=== PATIENT | female | born 1985 | race Caucasian/White ===

== ENCOUNTER → 2017-08-18 | Outpatient (CLI) | payer OTHER ==
[~2017-08-18] MED LIST: PREN0.01 PO; Z.0.NO CURRENT MEDS
== END ==
LOC: HPND 10:38
PROVIDERS: ATTEND Obstetrics & Gynecology
DX: O98.513 Other viral diseases complicating pregnancy, third trimester (principal); O99.323 Drug use complicating pregnancy, third trimester; O10.013 Pre-existing essential hypertension complicating pregnancy, third trimester
CPT/HCPCS: 76811

== ENCOUNTER 2017-09-02 16:23 | Observation (INO) | payer OTHER ==
[~2017-09-02] VITALS: Ht 162.6 cm; Wt 75.0 kg
[2017-09-02] MEDS ORDERED: ACETAMINOPHEN 325 MG TAB PO PRN ×2 (17:00→18:15)
[2017-09-02] MEDS ORDERED: hydrALAZINE HCL 20 MG/ML VIAL IV PUSH PRN ×2 (17:00→17:15)
[2017-09-02 17:34] LABS: HEMATOCRIT 36.5 % (35.0-46.0); HEMOGLOBIN 12.8 GM/DL (11.6-15.3); MEAN CELL VOLUME 98.3 FL (80.0-100.0); MEAN CORPUSCULAR HEMOGLOBIN 34.4 PG (27.0-34.0); MEAN PLATELET VOLUME 9.1 FL (7.0-11.0); PLATELET COUNT 171 TH/MM3 (150-450); RED BLOOD COUNT 3.71 MIL/MM3 (4.00-5.30); RED CELL DISTRIBUTION WIDTH 12.8 % (11.6-17.2); WHITE BLOOD COUNT 9.6 TH/MM3 (4.0-11.0)
--- NOTE | 2017-09-02 17:39 | PD ---
HPI Chief Complaint Elevated blood pressure in the office Travel History International Travel<30 Days: No Contact w/Intl Traveler<30Days: No Known Affected Area: No History of Present Illness HPI 32-year-old 002, IUP at 34.0 CARE complicated by history of chronic hypertension but not treated The patient presents from the office with elevated blood pressures. She reports that her blood pressures have been elevated throughout the as well as prior to the . She reports that she was to start medication prior to but did not. She reports occasional visual changes and headache. She denies any right upper quadrant or epigastric pain. She denies any leaking fluid or vaginal bleeding. She denies any painful contractions. She reports occasional mild cramping. She reports normal movement. She has no other obstetrical complaints today. Weeks Gestation: 34 Para: 2 : 3 History Past Medical History Narrative Medical Chronic hypertension Obstetric History Obstetric History 002 2 Past Surgical History Surgical History: No Previous Surgery Family History Narrative Family History Chronic hypertension Social History Alcohol Use: No Tobacco Use: No Substance Abuse: No Allergies-Medications (Allergen,Severity, Reaction): Coded Allergies: No Known Allergies (Verified , 12/17/12) Home Meds Reported Medications Multivit/Min/Fol Ac/Iron/Pren ( Vit ( Plus)) Tab, 1 TAB PO DAILY, TAB 08/11/13 Miscellaneous (No Current Meds) Misc 12/17/12 Review of Systems Except as stated in HPI: all other systems reviewed are Neg Physical Exam Narrative GENERAL: Well-nourished, well-developed patient. SKIN: Warm and dry. HEAD: Normocephalic and atraumatic. EYES: No scleral icterus. No injection or drainage. ENT: No nasal drainage noted. Mucous membranes pink. Airway patent. NECK: Supple, trachea midline. No JVD. CARDIOVASCULAR: Regular rate and rhythm without murmurs, gallops, or rubs. RESPIRATORY: Breath sounds equal bilaterally. No accessory muscle use. BREASTS: Deferred ABDOMEN/GI: Abdomen soft, non-tender, bowel sounds present, no rebound, no guarding Gravid GENITOURINARY: Deferred FHT's: heart tones are in the 120s with moderate long-term variability, good accelerations, no decelerations noted. This a category 1 heart rate tracing and a reactive NST. EXTREMITIES: No cyanosis or edema. BACK: Nontender without obvious deformity. No CVA tenderness. NEUROLOGICAL/psychiatric/musculoskeletal: Awake and alert. Motor and sensory grossly within normal limits. Grossly normal muscle strength in all muscle groups. Normal speech. Grossly normal range of motion, gait, muscle strength. DTR 2+ with no clonus. Grossly normal memory and affect Data Data Orders Orders Cbc No Diff, Includes Plts (09/02/17 16:46) Comprehensive Metabolic Panel (09/02/17 16:46) Uric Acid (09/02/17 16:46) Urinalysis - C+S If Indicated (09/02/17 16:46) Protein Creat Ratio, Random Ur (09/02/17 16:46) ^ Insert Iv (09/02/17 16:49) Hydralazine Inj (Apresoline Inj) (09/02/17 17:00) Acetaminophen (Tylenol) (09/02/17 17:00) Hydralazine Inj (Apresoline Inj) (09/02/17 17:15) Labs Laboratory Tests Test 09/02/17 17:00 09/02/17 17:05 White Blood Count 9.6 Red Blood Count 3.71 Hemoglobin 12.8 Hematocrit 36.5 Mean Corpuscular Volume 98.3 Mean Corpuscular Hemoglobin 34.4 Mean Corpuscular Hemoglobin Concent 35.0 Red Cell Distribution Width 12.8 Platelet Count 171 Mean Platelet Volume 9.1 MDM Plan Assessment/plan: 1. IUP at 34.0 2. History of untreated chronic hypertension: The patient presents with elevated blood pressures today and received a dose of hydralazine in the OB ED. Preeclampsia workup was performed and showed no evidence of preeclampsia from a laboratory standpoint. Her PC ratio is 0.27. She has normal LFTs and uric acid. Will admit for 23 hour observation her blood pressures and obtain a 24- hour urine with creatinine clearance. Discussed with patient that her elevated blood pressures may be due to chronic hypertension but will monitor closely overnight. 3. well-being: Reassuring testing with reactive NST and category 1 heart rate tracing 4. Prematurity: Will administer betamethasone 2 doses for lung maturity 5. Hypokalemia: We will administer potassium 40meq x2 and recheck Tamiko Farley MD Sep 02, 2017 17:39
[2017-09-02 17:40] LABS: AMORPHOUS SEDIMENT, URINE RARE; BILIRUBIN, URINE NEG (NEG); BLOOD, URINE TRACE (NEG); GLUCOSE,URINE NEG (NEG); KETONE, URINE 150 mg/dL (NEG); MUCUS URINE FEW /lpf (OCC); NITRITE,URINE NEG (NEG); SQUAMOUS EPITHELIAL CELL URINE 6 /hpf (0-5); URINE COLOR YELLOW (YELLW/STRAW); URINE LEUKOCYTE ESTERASE MOD (NEG)
[2017-09-02 17:49] LABS: ALBUMIN 2.8 GM/DL (3.4-5.0); AST (GOT) 20 U/L (15-37); BICARBONATE 21.2 MEQ/L (21.0-32.0); BLOOD UREA NITROGEN 4 MG/DL (7-18); CALCIUM 8.2 MG/DL (8.5-10.1); CHLORIDE 104 MEQ/L (98-107); CREATININE 0.36 MG/DL (0.50-1.00); GLOMERULAR FILTRATION RATE 208 ML/MIN (>89); GLUCOSE,RANDOM 74 MG/DL (74-106); SODIUM (NA) 138 MEQ/L (136-145)
[2017-09-02 17:52] LABS: ALKALINE PHOSPHATASE 101 U/L (45-117); ALT (GPT) 34 U/L (10-53); TOTAL BILIRUBIN ADULT 0.5 MG/DL (0.2-1.0); TOTAL PROTEIN 6.9 GM/DL (6.4-8.2)
[2017-09-02] MEDS ORDERED: LACTATED RINGER'S 1000 ML INJ 1,000 ML IV SCH (18:02)
[2017-09-02] MEDS ORDERED: LACTATED RINGER'S 1000 ML INJ 1,000 ML IV ONE (18:15)
[2017-09-02] MEDS ORDERED: ONDANSETRON ODT 4 MG TAB PO PRN (18:15)
[2017-09-02] MEDS ORDERED: SODIUM CHLORIDE 0.9% FLUSH 10 ML FLUSH IV FLUSH PRN (18:15)
[2017-09-02] MEDS ORDERED: DOCUSATE SODIUM 100 MG CAP PO PRN (18:15)
[2017-09-02] MEDS ORDERED: ZOLPIDEM TARTRATE 5 MG TAB PO PRN (18:15)
--- NOTE | 2017-09-02 18:17 | PD ---
History of Present Illness History of Present Illness NST report Indications: 1 IUP at 34 weeks 2. Elevated blood pressure 3. History of chronic hypertension The heart tones are in the 120s with moderate long-term variability, good accelerations, no decelerations noted. This is a reactive NST and category 1 heart rate tracing Follow-up: Follow-up with continued monitoring Final diagnosis: IUP at 34 weeks, elevated blood pressure probably consistent consistent with chronic hypertension, reassuring wellbeing Tamiko Ohara MD Sep 02, 2017 18:16
[2017-09-02] MEDS: ENTER PATIENT'S HT/WT INTO MEDITECH OTHER SCH ×2 (18:30→19:30)
--- NOTE | 2017-09-02 18:43 | HHI.HP ---
History & Physical H&P Patient Name: Melanie Panda Unit Number: [id number] Date of : 1985 Patient Status: Admitted Inpatient (obs) Attending Doctor: Tamiko Ohara MD HPI HPI Chief Complaint Elevated blood pressure in the office Travel History International Travel<30 Days: No Contact w/Intl Traveler<30Days: No Known Affected Area: No History of Present Illness HPI 32-year-old 002, IUP at 34.0 CARE complicated by history of chronic hypertension but not treated The patient presents from the office with elevated blood pressures. She reports that her blood pressures have been elevated throughout the as well as prior to the . She reports that she was to start medication prior to but did not. She reports occasional visual changes and headache. She denies any right upper quadrant or epigastric pain. She denies any leaking fluid or vaginal bleeding. She denies any painful contractions. She reports occasional mild cramping. She reports normal movement. She has no other obstetrical complaints today. Weeks Gestation: 34 Para: 2 : 3 History (Limited) History Past Medical History Narrative Medical Chronic hypertension Obstetric History Obstetric History 002 2 Past Surgical History Surgical History: No Previous Surgery Family History Narrative Family History Chronic hypertension Social History Alcohol Use: No Tobacco Use: No Substance Abuse: No Allergies-Medications Allergies-Medications (Allergen,Severity, Reaction): Coded Allergies: No Known Allergies (Verified , 12/17/12) Home Meds Reported Medications Multivit/Min/Fol Ac/Iron/Pren ( Vit ( Plus)) Tab, 1 TAB PO DAILY, TAB 08/11/13 Miscellaneous (No Current Meds) Misc 12/17/12 ROS Review of Systems Except as stated in HPI: all other systems reviewed are Neg Physical Exam Physical Exam Narrative GENERAL: Well-nourished, well-developed patient. SKIN: Warm and dry. HEAD: Normocephalic and atraumatic. EYES: No scleral icterus. No injection or drainage. ENT: No nasal drainage noted. Mucous membranes pink. Airway patent. NECK: Supple, trachea midline. No JVD. CARDIOVASCULAR: Regular rate and rhythm without murmurs, gallops, or rubs. RESPIRATORY: Breath sounds equal bilaterally. No accessory muscle use. BREASTS: Deferred ABDOMEN/GI: Abdomen soft, non-tender, bowel sounds present, no rebound, no guarding Gravid GENITOURINARY: Deferred FHT's: heart tones are in the 120s with moderate long-term variability, good accelerations, no decelerations noted. This a category 1 heart rate tracing and a reactive NST. EXTREMITIES: No cyanosis or edema. BACK: Nontender without obvious deformity. No CVA tenderness. NEUROLOGICAL/psychiatric/musculoskeletal: Awake and alert. Motor and sensory grossly within normal limits. Grossly normal muscle strength in all muscle groups. Normal speech. Grossly normal range of motion, gait, muscle strength. DTR 2+ with no clonus. Grossly normal memory and affect Data Data Data Orders Orders Cbc No Diff, Includes Plts (09/02/17 16:46) Comprehensive Metabolic Panel (09/02/17 16:46) Uric Acid (09/02/17 16:46) Urinalysis - C+S If Indicated (09/02/17 16:46) Protein Creat Ratio, Random Ur (09/02/17 16:46) ^ Insert Iv (09/02/17 16:49) Hydralazine Inj (Apresoline Inj) (09/02/17 17:00) Acetaminophen (Tylenol) (09/02/17 17:00) Hydralazine Inj (Apresoline Inj) (09/02/17 17:15) Labs Laboratory Tests Test 09/02/17 17:00 09/02/17 17:05 White Blood Count 9.6 Red Blood Count 3.71 Hemoglobin 12.8 Hematocrit 36.5 Mean Corpuscular Volume 98.3 Mean Corpuscular Hemoglobin 34.4 Mean Corpuscular Hemoglobin Concent 35.0 Red Cell Distribution Width 12.8 Platelet Count 171 Mean Platelet Volume 9.1 MDM [facility] Plan Assessment/plan: 1. IUP at 34.0 2. History of untreated chronic hypertension: The patient presents with elevated blood pressures today and received a dose of hydralazine in the OB ED. Preeclampsia workup was performed and showed no evidence of preeclampsia from a laboratory standpoint. Her PC ratio is 0.27. She has normal LFTs and uric acid. Will admit for 23 hour observation her blood pressures and obtain a 24- hour urine with creatinine clearance. Discussed with patient that her elevated blood pressures may be due to chronic hypertension but will monitor closely overnight. 3. well-being: Reassuring testing with reactive NST and category 1 heart rate tracing 4. Prematurity: Will administer betamethasone 2 doses for lung maturity 5. Hypokalemia: We will administer potassium 40meq x2 and recheck potassium Tamiko Ohara MD Sep 02, 2017 17:39 Tamiko Ohara MD Sep 02, 2017 18:43
[2017-09-02] MEDS: BETAMETHASONE SOD PHOS/ACETATE SUSP 30 MG/5 ML VIAL IM SCH (20:00)
[2017-09-02] MEDS: SODIUM CHLORIDE 0.9% FLUSH 10 ML FLUSH IV FLUSH SCH (21:00)
[2017-09-02] MEDS: POTASSIUM CHLORIDE 20 MEQ CONTROLLED RELEASE TAB PO SCH (21:05)
--- NOTE | 2017-09-03 08:15 | PD.OB.ANTE ---
Subjective Interval History No acute events overnight. This morning patient is denying any headache, vision changes, chest pain, shortness of breath, abdominal pain, peripheral edema. Patient was on monitor overnight. FHT reassuring with a baseline heart rate of 135, moderate variability, positive accelerations, no decelerations, and no contractions. Objective Lab & Micro Results Test 09/02/17 17:00 09/02/17 17:05 Urine Color YELLOW Urine Turbidity HAZY Urine pH 7.0 Urine Specific [place] 1.015 Urine Protein TRACE mg/dL Urine Glucose (UA) NEG mg/dL Urine Ketones 150 mg/dL Urine Occult Blood TRACE Urine Nitrite NEG Urine Bilirubin NEG Urine Urobilinogen LESS THAN 2.0 MG/DL Urine Leukocyte Esterase MOD Urine RBC LESS THAN 1 /hpf Urine WBC 3 /hpf Urine Squamous Epithelial Cells 6 /hpf Urine Amorphous Sediment RARE Urine Mucus FEW /lpf Microscopic Urinalysis Comment CULT NOT INDICATED Urine Random Creatinine 95 MG/DL Urine Random Total Protein 26 MG/DL Urine Protein/Creatinine Ratio 0.27 Urine Opiates Screen NEG Urine Barbiturates Screen NEG Urine Amphetamines Screen POS Urine Benzodiazepines Screen POS Urine Cocaine Screen NEG Urine Cannabinoids Screen POS White Blood Count 9.6 TH/MM3 Red Blood Count 3.71 MIL/MM3 Hemoglobin 12.8 GM/DL Hematocrit 36.5 % Mean Corpuscular Volume 98.3 FL Mean Corpuscular Hemoglobin 34.4 PG Mean Corpuscular Hemoglobin Concent 35.0 % Red Cell Distribution Width 12.8 % Platelet Count 171 TH/MM3 Mean Platelet Volume 9.1 FL Blood Urea Nitrogen 4 MG/DL Creatinine 0.36 MG/DL Random Glucose 74 MG/DL Total Protein 6.9 GM/DL Albumin 2.8 GM/DL Calcium Level 8.2 MG/DL Uric Acid 2.6 MG/DL Alkaline Phosphatase 101 U/L Aspartate Amino Transf (AST/SGOT) 20 U/L Alanine Aminotransferase (ALT/SGPT) 34 U/L Total Bilirubin 0.5 MG/DL Sodium Level 138 MEQ/L Potassium Level 3.1 MEQ/L Chloride Level 104 MEQ/L Carbon Dioxide Level 21.2 MEQ/L Anion Gap 13 MEQ/L Estimat Glomerular Filtration Rate 208 ML/MIN Physical Exam GENERAL: Well-nourished, well-developed patient. CARDIOVASCULAR: Regular rate and rhythm without murmurs, gallops, or rubs. RESPIRATORY: Breath sounds equal bilaterally. No accessory muscle use. ABDOMEN/GI: Abdomen soft, non-tender. Fundus: Consistent with 34 weeks GENITOURINARY: External Genitalia: intact and normal in appearance Uterine Contractions: None FHT's: Category: 1 Baseline: 135 Reactive: Yes Variability: Moderate Decels: None EXTREMITIES: No cyanosis or edema, non-tender, without signs of DVT. Assessment and Plan Assessment and Plan Assessment/plan: 1. IUP at 34.1 2. History of untreated chronic hypertension: The patient presented with elevated blood pressures on 09/02 and received a dose of hydralazine in the OB ED. received another dose of hydralazine 5 hours after admission. Following the second dose, patient's highest blood pressure has been 147/91 with the majority of blood pressures being normotensive overnight. Preeclampsia workup was performed and showed no evidence of preeclampsia from a laboratory standpoint. Her PC ratio is 0.27. She has normal LFTs and uric acid. Was admitted for 23 hour observation her blood pressures and obtain a 24-hour urine with creatinine clearance. Discussed with patient that her elevated blood pressures may be due to chronic hypertension but will monitor closely while hospitalized. Will likely need p.o. blood pressure control at discharge ( consider labetalol) 3. well-being: Reassuring testing with reactive NST and category 1 heart rate tracing 4. Prematurity: Ordered betamethasone 2 doses for lung maturity 5. Hypokalemia: Administered potassium 40meq x2 and recheck potassium later today Chris Tee MD R1 Sep 03, 2017 08:15
[2017-09-03] MEDS: SODIUM CHLORIDE 0.9% FLUSH 10 ML FLUSH IV FLUSH SCH (09:00)
[2017-09-03] MEDS ORDERED: MULTIVIT/MIN/PREN/FOL AC/IRON PRENATAL TAB PO SCH (09:00)
[2017-09-03] MEDS: POTASSIUM CHLORIDE 20 MEQ CONTROLLED RELEASE TAB PO SCH (09:10)
[2017-09-03 19:09] LABS: BICARBONATE 19.4 MEQ/L (21.0-32.0); CALCIUM 9.3 MG/DL (8.5-10.1); CREATININE 0.77 MG/DL (0.50-1.00)
[2017-09-03] MEDS: BETAMETHASONE SOD PHOS/ACETATE SUSP 30 MG/5 ML VIAL IM SCH (19:44)
--- NOTE | 2017-09-03 20:14 | HHI.PR ---
MAC DEVELOPER Note Note I spoke with pt regarding POC. 24hr ur protein returned as 414mg. Discussed that this met criteria for preE. Pt's BPs throughout the day have been mild range. UDS was positive for amphetamines which may be a confounder. Advised pt that with dx of preE, she should be delivered at 37wks. However, need to monitor overnight to ensure no oral medication is needed as amphetamines wash out. Pt reluctantly agreed. Ts cat 1. Jarad Duque MD Sep 03, 2017 20:14
== END 2017-09-03 20:38 | disposition home or self-care (01) ==
LOC: HOBED 16:23 → H2EA 18:04
PROVIDERS: ADMIT Obstetrics & Gynecology; ATTEND Obstetrics & Gynecology
DX: O16.3 Unspecified maternal hypertension, third trimester (principal); E87.6 Hypokalemia; O99.283 Endocrine, nutritional and metabolic diseases complicating pregnancy, third trimester; Z3A.34 34 weeks gestation of pregnancy; R51 Headache
CPT/HCPCS: 59025; 80048; 80053; 80307; 81001; 82570; 82575; 84156; 84157; 84550; 85027; 96372; 96374; 96376; 99285; G0378; G0481; J0360; J0702; J7120

== ENCOUNTER 2017-09-23 15:35 | Inpatient (IN) | END 2017-09-26 11:01 | disposition home or self-care (01) | LOC: H2E 16:20 | PROVIDERS: ADMIT Obstetrics & Gynecology; ATTEND Obstetrics & Gynecology ==